=== PATIENT | female | born 1985 | race Hispanic/Latino ===

== ENCOUNTER 2017-03-15 10:55 | Inpatient (IN) | payer MEDICAID, OTHER ==
[2017-03-15 11:08] VITALS: BMI 27.1
[2017-03-15] MEDS ORDERED: Lactated Ringer's 1,000 ML IV SCH (11:10)
[2017-03-15 11:33] LABS: BASO % 0.2 % (0.0-2.0); EOS # 0.1 K/uL (0.0-0.7); EOS % 0.5 % (0.0-4.0); HEMOGLOBIN 12.2 g/dL (12.0-16.0); LYMPH # 1.5 K/uL (1.0-4.3); LYMPH % 14.8 % (20.0-40.0); MEAN CELL VOLUME 87.3 fl (81.0-99.0); MEAN CORPUSCULAR HEMOGLOBIN 29.5 pg (27.0-31.0); MEAN CORPUSCULAR HGB CONC 33.8 g/dL (33.0-37.0); MEAN PLATELET VOLUME 10.3 fl (7.2-11.7); MONO # 0.6 K/uL (0.0-0.8); MONO % 6.5 % (0.0-10.0); NEUT # 7.8 K/uL (1.8-7.0); NRBC % 0.1 % (0.0-0.0); RBC 4.14 Mil/uL (3.80-5.20); RED CELL DISTRIBUTION WIDTH 13.5 % (11.5-14.5)
[2017-03-15] MEDS ORDERED: Lidocaine 1% Inj (20ml) ONE (12:17)
[2017-03-15] MEDS ORDERED: Oxytocin 20 units in LR 0 ML IV ONE (12:17)
[2017-03-15] MEDS ORDERED: Oxytocin 30 units/LR 500ML 30 U/500 ML BAG IV ONE ×2 (12:17→13:20)
[2017-03-15] MEDS ORDERED: Benzocaine/Menthol SPRAY TOP PRN (14:12)
--- NOTE | 2017-03-15 15:59 | OBADHP ---
Datetime: 03/15/2017 15:44 Admit Comment, IP Provider: 31yo @ 40+2 wks. Normal course, GBS negative; B+; last H/ H/Pl 12.3/36.7/168. GC/Chlamydia negative. Had planned to have a homebirth; this is an intrapartum transfer for lack of heartrate variability at home @ 7cms. However, on admission to hospital, heart rate tracing is reactive with accels and good variability and no decels. Patient desires natural, unmedicated , and waterbirth if possible. she would also like to take the placenta blaine e with her. Informed consents obtained. Pelvic Type - PN: Adequate Extremities - PN: Normal Abdomen - PN: Normal Back - PN: Normal Breast - PN: Normal Lungs - PN: Normal Heart - PN: Normal Thyroid - PN: Normal Neurologic - PN: Normal HEENT - PN: Normal General - PN: Normal Weight - Estimated: 3950 Presentation-Admit: Vertex Membranes, Provider: Intact Contraction Comments Provider: q2 Comments, ACOG Physical Exam: Normal exam at term : HEENT, atraumatic Neuro: Alert and oriented x 3 Thyroid: no thyromegaly Cardiac: RRR, 74, no murmur Repiratory: clear bilaterally to auscultation; no wheeze Breast: no masses or skin changes Back: straight, no CVAT Abdomen: gravid at term Geniourinary: No dysuria or hematuria; GBS negative, + varicosities labia Extremities: Mild pedal edema, + varicosities legs, no tender, no redness DTR: normal, no homans Pelvis: proven to 8# vaginal Gestation - Est Wks by US: 40.2 Pool Provider: Negative IP Hx Assessment: The History has been Reviewed and is Current IP Chief Complaint: Uterine contractions NICHD Accel Fetus A IP Provider: 10X10 FHR Category Provider Fetus A: Category I NICHD Decel Fetus A IP Provider: None Dilatation, Provider: 8 Effacement, Provider: 90 Station, Provider: -1 Genitourinary Exam: Normal DTRs - PN: Normal EGA AdmitDate IP: 40.2 IP Adm Impression: Term, intrauterine ; Active labor; Intact Membranes IP Admit Plan: Admit to unit; Initiate labor protocol
--- NOTE | 2017-03-15 16:17 | OBDS ---
DELIVERY PERSONNEL Delivery Doctor: Alondra Lopez CNM Sex Therapist: Peggy Carney RN MATERNAL INFORMATION Delivery Anesthesia: Local Medications in Delivery: ptocin Placenta Cultured: No Maternal Complications: None Provider Comments: Healthy, vigorous, term, male infant born . Infant crying at delivery, place d on mothers chest. Bonding/breast feeding initiated. Placenta delivered complete, spontaneously. E BL was 150. Small first degree tear was noted and repaired. Mother and baby doing well, stable. Shanna astfeeding initiated. LABOR SUMMARY EDC: 03/13/2017 00:00 No. Babies in Womb: 0 Attempted: No Labor Anesthesia: None LABOR INFORMATION Reason for Induction: Not Applicable Onset of Labor: 03/15/2017 08:00 Complete Dilatation: 03/15/2017 11:10 Oxytocin: N/A Group B Beta Strep: Negative Antibiotics # of Doses: n/a Antibiotics Time of Last Dose: n/a Steroids Given: None Reason Steroids Not Administered: Not Applicable MEMBRANES Membranes Rupture Method: Spontaneous Rupture of Membranes: 03/15/2017 13:05 Length of Rupture (hrs): 0.17 Amniotic Fluid Color: Clear Amniotic Fluid Amount: Moderate Amniotic Fluid Odor: Normal STAGES OF LABOR Stage 1 hrs: 3 Stage 1 min: 10 Stage 2 hrs: 2 Stage 2 min: 5 Stage 3 hrs: 0 Stage 3 min: 5 Total Time in Labor hrs: 5 Total Time in Labor min: 20 VAGINAL DELIVERY Episiotomy: None Laceration Extension: First Degree Laceration Type: Perineal Laceration Repair: Yes Laceration Repair Note: Midline first degree tear, repaired with 3-0 Chromic, well approximated. 5c c 1% Lidocaine. Initial Vag Sponge Count: 0 Final Vag Sponge Count: 0 Initial Vag Sharps Count: 2 Final Vag Sharps Count: 2 Sponge Count Correct: Yes Sharps Count Correct: Yes Count Comment: 5 laps: counted x3 correct and acknowledged. BABY A INFORMATION Infant Delivery Date/Time: 03/15/2017 13:15 Method of Delivery: Vaginal Born in Route : No : N/A Forceps: N/A Vacuum Extraction: N/A Shoulder Dystocia : No SHOULDER DYSTOCIA BABY A Infant Delivery Date/Time: 03/15/2017 13:15 PRESENTATION/POSITION BABY A Presentation: Cephalic Cephalic Presentation: Vertex Breech Presentation: N/A PLACENTA INFORMATION BABY A Placenta Delivery Time : 03/15/2017 13:20 Placenta Method of Delivery: Spontaneous Placenta Status: Delivered SCORES BABY A Heart Rate 1 min: >100 bpm Resp Effort 1 min: Good Cry Reflex Irritability 1 min: Cough or Sneeze or Pulls Away Muscle Tone 1 min: Active Motion Color 1 min: Body [place], Extremities Blue Resuscitation Effort 1 min: Tactile Stimulation SCORE 1 MIN: 9 Heart Rate 5 min: >100 bpm Resp Effort 5 min: Good Cry Reflex Irritability 5 min: Cough or Sneeze or Pulls Away Muscle Tone 5 min: Active Motion Color 5 min: Body [place], Extremities Blue Resuscitation Effort 5 min: Tactile Stimulation SCORE 5 MIN: 9 INFORMATION BABY A Gestational Age at Delivery: 40.0 Gestational Status: Term Infant Outcome : Liveborn Condition : Stable Sex: Male IDENTIFICATION/MEDS BABY A ID Band Number: [id number] ID Band Location: Left Leg; Left Arm Vitamin K Given : Not Given Erythromycin Given: Not Given WEIGHT/LENGTH BABY A Infant Birthweight (gms): 3920 Infant Weight (lb): 8 Weight (oz): 10 CORD INFORMATION BABY A No. Cord Vessels: 3 Nuchal Cord : N/A Infant Suction: None ASSESSMENT BABY A Infant Complications: None Infant Complications Other: None Physical Findings at Delivery: Within Normal Limits Respirations: Appears Normal Director Cardiac/ALS Called : No Infant Care By: Dr. Mcconnell Transferred To: Remains with Mother
--- NOTE | 2017-03-15 17:39 | OBPPN ---
Datetime: 03/15/2017 17:31 PP Pain Prov: Within normal limits PP Nausea Prov: Denies PP Flatus Prov: No PP BM Prov: No PP Breasts Prov: Normal PP Heart Prov: Normal PP Lungs Prov: Normal PP Abdomen/Uterus Prov: Normal PP Lochia Prov: Normal PP Vulva/Perineum Prov: Normal PP CVA Tenderness Prov: Normal PP Extremities Prov: Normal PP Comments Phys Exam Prov: Cardiovascular: RRR 68, no murmur Repiratory: Clear bilaterally to auscultation; no wheeze Abdomen: soft, non-tender, Uterus at ubilicus Lochia: WNL, red Vulva/Perinuem: No edema, stitches in place, well approximated Breasts: non-tender, lactating, + colostrum No CVAT Extremities: non-tender, no redness Normal reflexes, no homans PP Impression Prov: Normal progression PP Plan Prov: Continue present management PP Progress Note Prov: Patient expresses desire for early discharge this evening. May be discharged with scalp treatment specialist follow up at 24 hours . If baby is not discharged, mother will stay 24 hours . Follow up with scalp treatment specialist home visits. Anticipate normal course. IP PP Procedures: None Vital Signs Provider PP: Reviewed; Within Normal Limits
[2017-03-16 07:43] LABS: BASO % 0.1 % (0.0-2.0); EOS % 0.4 % (0.0-4.0); HEMOGLOBIN 10.9 g/dL (12.0-16.0); LYMPH % 18.9 % (20.0-40.0); MEAN CELL VOLUME 86.8 fl (81.0-99.0); MEAN CORPUSCULAR HEMOGLOBIN 29.7 pg (27.0-31.0); MEAN CORPUSCULAR HGB CONC 34.2 g/dL (33.0-37.0); MEAN PLATELET VOLUME 9.9 fl (7.2-11.7); MONO # 0.8 K/uL (0.0-0.8); MONO % 7.8 % (0.0-10.0); NEUT # 7.7 K/uL (1.8-7.0); NEUT % 72.8 % (50.0-75.0); RBC 3.68 Mil/uL (3.80-5.20); RED CELL DISTRIBUTION WIDTH 13.3 % (11.5-14.5); WHITE BLOOD COUNT 10.6 K/uL (4.8-10.8)
== END 2017-03-16 12:58 | disposition home or self-care (01) | DRG 373 ==
LOC: H.EROB2 10:55 → H.L&D 11:10 → H.OB/GYN 17:06
PROVIDERS: ADMIT Midwife; ATTEND Midwife
PROC: 10E0XZZ Delivery of Products of Conception, External Approach (ICD-10-PCS; principal; 2017-03-15)
PROC: 0HQ9XZZ Repair Perineum Skin, External Approach (ICD-10-PCS; 2017-03-15)
PROC: 4A1HXCZ Monitoring of Products of Conception, Cardiac Rate, External Approach (ICD-10-PCS; 2017-03-15)
DX: O48.0 Post-term pregnancy (principal); O70.0 First degree perineal laceration during delivery; O22.03 Varicose veins of lower extremity in pregnancy, third trimester; Z3A.40 40 weeks gestation of pregnancy; Z37.0 Single live birth